=== PATIENT | female | born 1945 | race Caucasian/White ===

== ENCOUNTER 2024-09-28 19:35 | Emergency (ER) | payer MEDICARE ==
[~2024-09-28] VITALS: Ht 162.6 cm; Wt 58.1 kg
[2024-09-28] MEDS ORDERED: NIRM1TAB6 PO (20:28)
[2024-09-28 21:18] VITALS: BP 146/75; TEMP 97.9; O2SAT 98
== END 2024-09-28 21:18 | disposition home or self-care (01) ==
LOC: ER 19:35
DX: R05.9 Cough, unspecified (principal); Z20.822 Contact with and (suspected) exposure to COVID-19; Z88.2 Allergy status to sulfonamides; Z88.8 Allergy status to other drugs, medicaments and biological substances
CPT/HCPCS: A4606; A4663